=== PATIENT | male | born 1955 ===

== ENCOUNTER 2017-09-05 08:22 | Day surgery (SDC) | payer MEDICAID ==
[2016-09-23 17:57] VITALS: BMI 25.3
--- NOTE | 2017-09-05 11:29 | CP.SDSHP ---
Same Day Surgery H & P - History Proposed Procedure: US guided paracentesis Pre-Op Diagnosis: aSCITES - Allergies Allergies: Allergies No Known Allergies Allergy (Verified 02/21/14 08:32) - Physical Exam Vital Signs: Vital Signs 09/05/17 08:36 Temperature 97.6 F Pulse Rate 81 Respiratory 20 Rate Blood Pressure 157/75 H O2 Sat by Pulse 97 Oximetry Mental Status: Alert & Oriented x3 Neuro: WNL Heart: WNL Lungs: WNL - {Optional Preform as Required} Abdomen: Other (Distended, non tender) - Impression Impression: Pt with ascites refered for paracentesis. Informed consent obtained. Pt. Evaluated Today:Candidate for Anesthesia & Procedure: No Short Stay Discharge - Short Stay Discharge Admitting Diagnosis/Reason for Visit: OTHER ASCITES Disposition: HOME/ ROUTINE
--- NOTE | 2017-09-05 11:37 | PCM.SURG1 ---
Surgeon's Initial Post Op Note - Surgeon's Notes Surgeon: Hosea Bran MD Ammunition Assembly Ii Laborer: NONE Type of Anesthesia: Local Pre-Operative Diagnosis: Ascites Operative Findings: US showed moderate ascites Post-Operative Diagnosis: Ascites Operation Performed: US guided paracentesis Specimen/Specimens Removed: 3.8 liters Estimated Blood Loss: EBL {In ML}: 0 Blood Products Given: N/A Drains Used: No Drains Post-Op Condition: Fair Date of Surgery/Procedure: 09/05/17 Time of Surgery/Procedure: 11:30
[2017-09-05 12:39] VITALS: RESP 16; TEMP 97.8
[2017-09-05 12:42] VITALS: BP 144/68; PULSE 82; O2SAT 97
[2017-09-05 14:35] LABS: BODY FLUID TYPE PERITONEAL/ASCITES
[2017-09-05 15:24] LABS: BF GROSS APPEARANCE CLEAR (CLEAR); BODY FLUID MONO/MACROPHAGE 6 % (0-0)
== END 2017-09-05 12:15 | disposition home or self-care (01) ==
LOC: C.SPRAD 08:22
PROVIDERS: ATTEND Radiology Vascular & Interventional Radiology
DX: R18.8 Other ascites (principal)

== ENCOUNTER 2018-05-07 15:09 | Inpatient (IN) | payer MEDICAID ==
[2018-05-07 15:09] VITALS: BMI 25.3
--- NOTE | 2018-05-07 15:36 | C.PDOC ---
History Of Present Illness 62 y/o male pt with hx of ESRD c/o SOB. Pt reports he had SOB for x5 years but is worse today. Pt goes to dialysis on Friday and and was unable to receive dialysis due to SOB. Pt last dialysis was x2 days ago. Pt denies chest pain. Time Seen by Provider: 05/07/18 15:14 Chief Complaint (Nursing): Shortness Of Breath History Per: Patient History/Exam Limitations: no limitations Onset/Duration Of Symptoms: Hrs, Worse Since Current Symptoms Are (Timing): Still Present Past Medical History Reviewed: Historical Data, Nursing Documentation, Vital Signs Vital Signs: Last Vital Signs Temp 97.9 F 05/07/18 15:23 Pulse 76 05/07/18 15:23 Resp 20 05/07/18 15:23 BP 158/70 H 05/07/18 15:23 Pulse Ox 96 05/07/18 15:23 - Medical History PMH: Anemia, Gall Bladder Disease, HTN, Hypercholesterolemia Surgical History: Cholecystectomy - [facility] Procedures CATARAC PHACOEMULS/ASPIR (02/22/14) INSERT LENS AT CATAR EXT (02/22/14) Family History: States: No Known Family Hx - Social History Hx Alcohol Use: No Hx Substance Use: No Review Of Systems Except As Marked, All Systems Reviewed And Found Negative. Respiratory: Positive for: Shortness of Breath Physical Exam - Physical Exam Appears: Non-toxic, No Acute Distress Skin: Normal Color, Warm, Dry Head: Atraumatic, Normacephalic Oral Mucosa: Moist Throat: Normal Neck: Normal ROM, Supple Chest: Symmetrical Cardiovascular: Rhythm Regular Respiratory: Rales (b/l base), No Rhonchi, No Wheezing Gastrointestinal/Abdominal: Soft, No Tenderness Extremity: Pedal Edema (+2 b/l), Other (Thrill from AV fistula) Neurological/Psych: Oriented x3, Normal Speech ED Course And Treatment - Laboratory Results Result Diagrams: 05/07/18 15:36 05/07/18 15:36 ECG: Interpreted By Me, Viewed By Me ECG Rhythm: Sinus Rhythm ECG Interpretation: Normal Interpretation Of ECG: LAD; incomplete LBBB; LDH; no ST/T wave abnormalities Rate From EC O2 Sat by Pulse Oximetry: 96 (RA) Pulse Ox Interpretation: Normal - Other Rad chest X-Ray: Read By Radiologist Interpretation: Accession No. : [id number]. Patient Name / ID : DANTE HASSAN / [id number]. Exam Date : 05/07/2018 15:39:31 ( Approved ). Study Comment : Sex / Age : M / 62Y. Creator : Cami Shaikh MD. Dictator : Cami Shaikh MD. Tape Recorder Mechanic : Health And Safety Inspector : Cami Shaikh MD. Approver2 : Report Date : 05/07/2018 16:17:10. My Comment : . HISTORY: SOB. COMPARISON: None available. TECHNIQUE: Chest, one view. FINDINGS: Examination limited by habitus. The patient's chin obscures evaluation of the lung apices. LUNGS: Moderate interstitial edema/infection. Please note that chest x-ray has limited sensitivity for the detection of pulmon jenn masses. PLEURA: No significant pleural effusion identified. No definite pneumothorax . CARDIOVASCULAR: Median sternotomy wires. Cardiomegaly. OSSEOUS STRUCTURES: Degenerative changes. VISUALIZED UPPER ABDOMEN: Unremarkable. OTHER FINDINGS: None. IMPRESSION: Moderate interstitial christie ma/infection. Cardiomegal Medical Decision Making Medical Decision Making: Impression: ESRD Plans: -- EKG -- chem labs -- nephrology consult -- blood work -- CXR Discuss case with Dr. Neal, will arrange dialysis and admit under Dr. Jeong and Dr. Mena GI consult. Disposition Discussed With : Moreno Jeong Doctor Will See Patient In The: Hospital Counseled Patient/Family Regarding: Studies Performed, Diagnosis - Disposition Disposition: HOSPITALIZED Disposition Time: 16:11 Condition: FAIR - Clinical Impression Clinical Impression: ESRD (end stage renal disease), Fluid overload, Chronic congestive heart failure, Ascites - Scribe Statement The provider has reviewed the documentation as recorded by the Scribe [place] Do Provider Attestation: All medical record entries made by the Scribe were at my direction and personally dictated by me. I have reviewed the chart and agree that the record accurately reflects my personal performance of the history, physical exam, medical decision making, and the department course for this patient. I have also personally directed, reviewed, and agree with the discharge instructions and disposition.
[2018-05-07 15:39] LABS: BASO % 1.4 % (0.0-2.0); HEMOGLOBIN 12.7 g/dL (12.0-18.0); MEAN PLATELET VOLUME 8.8 fL (7.2-11.7)
[2018-05-07 15:52] LABS: BASO # 0.1 K/uL (0.0-0.2); EOS # 0.2 K/uL (0.0-0.7); EOS % 2.9 % (0.0-4.0); LYMPH # 0.8 K/uL (1.0-4.3); LYMPH % 14.2 % (20.0-40.0); MEAN CORPUSCULAR HEMOGLOBIN 34.1 pg (27.0-31.0); MEAN CORPUSCULAR HGB CONC 34.1 g/dL (33.0-37.0); MONO # 0.5 K/uL (0.0-0.8); MONO % 8.3 % (0.0-10.0); NEUT % 73.2 % (50.0-75.0); RBC 3.73 Mil/uL (4.40-5.90); WHITE BLOOD COUNT 5.5 K/uL (4.8-10.8)
[2018-05-07 15:57] LABS: ALBUMIN 3.9 g/dL (3.5-5.0)
[2018-05-07 16:11] LABS: TROPONIN I 0.022 ng/mL (0.00-0.120)
--- NOTE | 2018-05-07 16:20 | RAD ---
HISTORY: SOB COMPARISON: None available. TECHNIQUE: Chest, one view. FINDINGS: Examination limited by habitus. The patient's chin obscures evaluation of the lung apices. LUNGS: Moderate interstitial edema/infection. Please note that chest x-ray has limited sensitivity for the detection of pulmonary masses. PLEURA: No significant pleural effusion identified. No definite pneumothorax . CARDIOVASCULAR: Median sternotomy wires. Cardiomegaly. OSSEOUS STRUCTURES: Degenerative changes. VISUALIZED UPPER ABDOMEN: Unremarkable. OTHER FINDINGS: None. IMPRESSION: Moderate interstitial edema/infection. Cardiomegaly.
--- NOTE | 2018-05-07 18:30 | CP.PCM.CON ---
History of Present Illness - History of Present Illness History of Present Illness: 62 yo male ho ESRD HD, CAD, low EF %, now with SOB and ascites. Hashad ascites x 1 yr and has had paracentesis. Has LE edema Review of Systems - Constitutional Constitutional: Fatigue. absent: Fever - EENT Eyes: absent: Photophobia - Cardiovascular Cardiovascular: Dyspnea. absent: Chest Pain - Respiratory Respiratory: absent: Dyspnea, Hemoptysis - Gastrointestinal Gastrointestinal: absent: Change in Bowel Habits, Hematemesis, Hematochezia, Loose Stools, Melena, Vomiting - Genitourinary Genitourinary: absent: Hematuria, Urinary Frequency - Musculoskeletal Musculoskeletal: absent: Muscle Cramps - Integumentary Integumentary: absent: Rash - Neurological Neurological: absent: Convulsions Past Patient History - Past Medical History & Family History Past Medical History?: Yes - Past Social History Smoking Status: Former Smoker - CARDIAC Hx Hypercholesterolemia: Yes Hx Hypertension: Yes - PULMONARY Hx Respiratory Disorders: No - NEUROLOGICAL Hx Neurological Disorder: No - HEENT Hx HEENT Problems: Yes Hx Cataracts: Yes - RENAL Hx Chronic Kidney Disease: No - ENDOCRINE/METABOLIC Hx Endocrine Disorders: Yes Hx Diabetes Mellitus Type 2: Yes - HEMATOLOGICAL/ONCOLOGICAL Hx Anemia: Yes - INTEGUMENTARY Hx Dermatological Problems: No - MUSCULOSKELETAL/RHEUMATOLOGICAL Hx Musculoskeletal Disorders: No - GASTROINTESTINAL Hx Gall Bladder Disease: Yes - GENITOURINARY/GYNECOLOGICAL Hx Genitourinary Disorders: Yes Hx Hematuria: Yes Hx Prostate Problems: Yes - PSYCHIATRIC Hx Substance Use: No - SURGICAL HISTORY Hx Cholecystectomy: Yes - ANESTHESIA Hx Anesthesia: Yes Hx Anesthesia Reactions: No Hx Malignant Hyperthermia: No Meds Allergies/Adverse Reactions: Allergies Allergy/AdvReac Type Severity Reaction Status Date / Time No Known Allergies Allergy Verified 02/21/14 08:32 Physical Exam - Constitutional Appears: Non-toxic - Respiratory Exam Respiratory Exam: Clear to Auscultation Bilateral - Cardiovascular Exam Cardiovascular Exam: RRR - GI/Abdominal Exam GI & Abdominal Exam: Distended, Normal Bowel Sounds. absent: Guarding, Mass, Rebound - Extremities Exam Extremities exam: Positive for: pedal edema - Neurological Exam Neurological exam: Alert, Oriented x3 Results - Vital Signs Recent Vital Signs: Last Vital Signs Temp 97.3 F L 05/07/18 17:15 Pulse 71 05/07/18 17:37 Resp 18 05/07/18 17:37 BP 154/73 H 05/07/18 17:40 Pulse Ox 100 05/07/18 17:15 - Labs Result Diagrams: 05/07/18 15:36 05/07/18 15:36 Labs: Laboratory Results - last 24 hr 05/07/18 05/07/18 15:36 15:36 WBC 5.5 RBC 3.73 L Hgb 12.7 Hct 37.3 MCV 100.0 H D MCH 34.1 H MCHC 34.1 RDW 16.0 H Plt Count 224 MPV 8.8 Neut % (Auto) 73.2 Lymph % (Auto) 14.2 L [place] % (Auto) 8.3 Eos % (Auto) 2.9 Baso % (Auto) 1.4 Neut # (Auto) 4.0 Lymph # (Auto) 0.8 L [place] # (Auto) 0.5 Eos # (Auto) 0.2 Baso # (Auto) 0.1 Sodium 134 Potassium 4.4 Chloride 93 L Carbon Dioxide 30 Anion Gap 16 BUN 53 H Creatinine 4.5 H Est GFR ( Amer) 16 Est GFR (Non-Af Amer) 13 Random Glucose 353 H D Calcium 9.0 Magnesium 2.1 Total Bilirubin 1.2 AST 50 ALT 26 Alkaline Phosphatase 1029 H Troponin I 0.0220 NT-Pro-B Natriuret Pep 29001 H Total Protein 8.0 Albumin 3.9 Globulin 4.1 H Albumin/Globulin Ratio 1.0 Assessment & Plan (1) Ascites Assessment and Plan: Likely cardiogentic and renal related. Has had paracentesis in past. Best approach is with HD Status: Acute (2) Chronic congestive heart failure Assessment and Plan: Low EF% Status: Acute (3) ESRD (end stage renal disease) Status: Acute
[2018-05-07 21:39] VITALS: RESP 20
--- NOTE | 2018-05-07 22:53 | HP ---
HISTORY OF PRESENT ILLNESS: This is a 62-year-old male with a history of end-stage renal disease, on hemodialysis. Had hemodialysis day before yesterday. The patient was referred to emergency room by lace burn out tender because of shortness of breath and not feeling well. The patient has been having ascites and he had paracentesis before. The patient states that his abdominal distention and abdominal girth has been increasing lately. The patient is on hemodialysis and he is compliant to dialysis also. The patient had history of coronary artery disease, status post coronary artery bypass graft a few years ago. The patient admits that he has exertional shortness of breath, which is getting worse, and also he has symptoms of orthopnea. Other review of systems is positive for generalized weakness. 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 FAMILY HISTORY: Noncontributory. SOCIAL HISTORY: Ex-smoker. No EtOH or substance abuse. MEDICATIONS: As per MAR, reviewed and ordered. ALLERGIES: NO KNOWN ALLERGIES. PHYSICAL EXAMINATION: GENERAL: The patient is in mild respiratory distress during this examination. VITAL SIGNS: Blood pressure 152/65, temperature 97.3, respiratory rate 20, and pulse 75. HEENT: Pupils equal and reactive to light. Normal-appearing mucosa of the conjunctivae, oropharynx and nasal membrane mucosa. NECK: Supple. No JVD. No carotid bruit. No lymph node. No thyromegaly. CHEST: Lungs show bilateral symmetrical expansion. Good air exchange. No rales, no rhonchi. CARDIOVASCULAR SYSTEM: PMI not localized. S1, S2. No additional sounds. ABDOMEN: Distant bowel sounds. There is increased abdominal girth with shifting dullness. EXTREMITIES: +1 edema of both lower extremities. FOOTWEAR STITCHER: Alert, awake, oriented x2. No neurological deficit could be appreciated. IMAGING DATA: On the chest x-ray, the patient showed moderate interstitial edema and cardiomegaly. ASSESSMENT: 1. Possible congestive heart failure. 2. Ascites. 3. Type 2 diabetes mellitus. 4. Coronary artery disease. 5. Hypertension. PLAN: We will do abdominal ultrasound and echocardiogram. Cardiology and GI consult. Resume the patient's home medications with Accu-Cheks and insulin coverage. Consider paracentesis. Nephrology consult. Continue hemodialysis. Delfina MD Jean-Paul
[2018-05-07] MEDS ORDERED: Glucagon Recombinant 1 mg Inj IM PRN (23:12)
[2018-05-07] MEDS ORDERED: Dextrose 50% SYRINGE Inj (50 ml) IV PRN (23:12)
[2018-05-08] MEDS: (Novolog) Insulin Aspart, Recombinant 100 u/ml 10 ml vial SC SCH ×2 (08:08→12:45)
--- NOTE | 2018-05-08 08:17 | CP.PCM.PN ---
Subjective - Date & Time of Evaluation Date of Evaluation: 05/08/18 Time of Evaluation: 08:14 - Subjective Subjective: f/u ascites. Reports abdom distention. Less SOB. Denies RB, melena, fever, chills, SZ, ARIAS, cough, hemoptysis, hematuria Objective - Vital Signs/Intake and Output Vital Signs (last 24 hours): Temp Pulse Resp BP Pulse Ox 98 F 73 20 156/78 H 95 05/07/18 23:45 05/08/18 06:08 05/07/18 23:45 05/08/18 06:08 05/07/18 23:45 Intake and Output: 05/08/18 05/08/18 06:59 18:59 Intake Total 50 Balance 50 - Medications Medications: Current Medications Allopurinol (Zyloprim) 100 mg PO DAILY [facility] Clopidogrel Bisulfate (Plavix) 75 mg PO DAILY [facility] Dextrose (Dextrose 50% Inj) 0 ml IV STAT PRN; Protocol PRN Reason: Hypoglycemia Protocol Dextrose (Glutose 15) 0 gm PO ONCE PRN; Protocol PRN Reason: Hypoglycemia Protocol Enalapril Maleate (Vasotec) 10 mg PO BID [facility] Ergocalciferol (Drisdol 50,000 Intl Units Cap) 1 cap PO Q7D [facility] Famotidine (Pepcid) 20 mg PO BID [facility] Glucagon (Glucagen Diagnostic Kit) 0 mg IM STAT PRN; Protocol PRN Reason: Hypoglycemia Protocol Dextrose (Dextrose 5% In Water 1000 Ml) 1,000 mls @ 0 mls/hr IV .Q0M PRN; Protocol PRN Reason: Hypoglycemia Protocol Insulin Aspart (Novolog) 0 unit SC ACHS [facility]; Protocol Last Admin: 05/08/18 08:08 Dose: 3 units Isosorbide Dinitrate (Isordil) 40 mg PO Q8 [facility] Last Admin: 05/08/18 06:08 Dose: 40 mg Magnesium Oxide (Mag-Ox) 400 mg PO BID [facility] Rosuvastatin Calcium (Crestor) 5 mg PO HS [facility] Sevelamer Carbonate (Renvela) 1,600 mg PO TID [facility] Torsemide (Demadex) 100 mg PO DAILY [facility] Vitamin B Complex/Vit C/Folic Acid (Nephro-Karolyn) 1 tab PO DAILY [facility] - Labs Labs: 05/07/18 15:36 05/07/18 15:36 - Constitutional Appears: Non-toxic - Respiratory Exam Respiratory Exam: Rales - Cardiovascular Exam Cardiovascular Exam: RRR - GI/Abdominal Exam GI & Abdominal Exam: Distended, Normal Bowel Sounds. absent: Tenderness - Extremities Exam Extremities Exam: Pedal Edema - Neurological Exam Neurological Exam: Alert, Oriented x3 Assessment and Plan (1) Ascites Assessment & Plan: From CRF and cardiac. Getting an extra HD today. If that does not help the ascites, then consider paracentesis, but will likley re-accumulate quickly. Status: Acute (2) Chronic congestive heart failure Status: Acute (3) ESRD (end stage renal disease) Status: Acute
[2018-05-08] MEDS ORDERED: Ergocalciferol 50,000 Intl Units Cap PO SCH (10:00)
[2018-05-08] MEDS ORDERED: Multivitamin Vitamin B Complex (Nephro-Vite) Tab PO SCH (10:00)
[2018-05-08] MEDS ORDERED: Magnesium Oxide 400 mg Tab UD PO SCH (10:00)
[2018-05-08 11:56] LABS: INR 1.2; PROTHROMBIN TIME 12.8 SECONDS (9.7-12.2)
--- NOTE | 2018-05-08 12:05 | CARD ---
APPROVED REPORT Date of service: 05/07/2018 EKG Measurement Heart [id number] <Conclusion> Normal sinus rhythm Possible Left atrial enlargement Left axis deviation Left ventricular hypertrophy with QRS widening Possible Lateral infarct, age undetermined Abnormal ECG
[2018-05-08] MEDS ORDERED: Lidocaine 2% MPF (5 ml) Inj ONE (14:01)
--- NOTE | 2018-05-08 14:21 | PCM.SURG1 ---
Surgeon's Initial Post Op Note - Surgeon's Notes Surgeon: Hosea Denny MD Analytical Research Chemist: NONE Type of Anesthesia: Local Pre-Operative Diagnosis: Ascites Operative Findings: US showed a moderate amount of ascites Post-Operative Diagnosis: Ascites Operation Performed: US guided paracentesis Specimen/Specimens Removed: 3 liters of heraclio colored fluid Estimated Blood Loss: EBL {In ML}: 0 Blood Products Given: N/A Drains Used: No Drains Post-Op Condition: Fair Date of Surgery/Procedure: 05/08/18 Time of Surgery/Procedure: 14:20
[2018-05-08 16:07] VITALS: BP 157/66; PULSE 75; TEMP 97.7; O2SAT 157
[2018-05-08 16:20] LABS: BF GROSS APPEARANCE BLOODY (CLEAR); BODY FLUID TYPE PERITONEAL
[2018-05-08 16:33] LABS: BODY FLUID MONO/MACROPHAGE 18 % (0-0)
--- NOTE | 2018-05-08 16:45 | US ---
Date of Procedure: 05/08/2018 PROCEDURE: Ultrasound-guided paracentesis, CPT 57039 Medications: 7 cc 1% Lidocaine HISTORY: Ascites, abdominal pain, cirrhosis TECHNIQUE: Following informed consent , the patient was placed supine on the stretcher and the site was marked. A limited abdominal ultrasound was performed that showed a large amount of intra-abdominal fluid. Procedural time out was called and the Pt's abdomen was marked and prepped and draped in the usual sterile fashion. Ultrasound-guided large volume paracentesis performed. A total of 3 Liters of straw colored fluid was removed without complication. IMPRESSION: Ultrasound-guided large volume paracentesis.
--- NOTE | 2018-05-08 17:46 | CP.PCM.CON ---
History of Present Illness - History of Present Illness History of Present Illness: REASONS OF CONSULT : ESRD ON HD TTS SEVERE SOB .. ANASARCA .. SEVERE ASCITIS PT WAS SEEN AT THE HD CWNTER WAS C/O SEVERE SOB AND TENSE ASCITIS AND ANASARCA HE WANTED TO GO TO THE HOSPITAL FOR PARATSENTHESIS .. History Of Present Illness 62 y/o male pt with hx of ESRD c/o SOB. Pt reports he had SOB for x5 years but is worse today. Pt goes to dialysis on Friday and and was unable to receive dialysis due to SOB. Pt last dialysis was x2 days ago. Pt denies chest pain. Time Seen by Provider: 05/07/18 15:14 Chief Complaint (Nursing): Shortness Of Breath History Per: Patient History/Exam Limitations: no limitations Onset/Duration Of Symptoms: Hrs, Worse Since Current Symptoms Are (Timing): Still Present Past Medical History Reviewed: Historical Data, Nursing Documentation, Vital Signs Vital Signs: Last Vital Signs Temp 97.9 F 05/07/18 15:23 Pulse 76 05/07/18 15:23 Resp 20 05/07/18 15:23 BP 158/70 H 05/07/18 15:23 Pulse Ox 96 05/07/18 15:23 - Medical History PMH: Anemia, Gall Bladder Disease, HTN, Hypercholesterolemia Surgical History: Cholecystectomy - [facility] Procedures Past Patient History - Past Medical History & Family History Past Medical History?: Yes - Past Social History Smoking Status: Heavy Smoker > 10 Cigarettes Daily - CARDIAC Hx Hypercholesterolemia: Yes Hx Hypertension: Yes - PULMONARY Hx Respiratory Disorders: No - NEUROLOGICAL Hx Neurological Disorder: No - HEENT Hx HEENT Problems: Yes Hx Cataracts: Yes - RENAL Hx Chronic Kidney Disease: No Type of Dialysis Access: SCOTT AV shunt Date of Last Dialysis Treatment: 05/07/18 - ENDOCRINE/METABOLIC Hx Endocrine Disorders: Yes Hx Diabetes Mellitus Type 2: Yes - HEMATOLOGICAL/ONCOLOGICAL Hx Anemia: Yes Hx Blood Transfusions: Yes - INTEGUMENTARY Hx Dermatological Problems: No - MUSCULOSKELETAL/RHEUMATOLOGICAL Hx Musculoskeletal Disorders: No - GASTROINTESTINAL Hx Gall Bladder Disease: Yes - GENITOURINARY/GYNECOLOGICAL Hx Genitourinary Disorders: Yes Hx Hematuria: Yes Hx Prostate Problems: Yes - PSYCHIATRIC Hx Substance Use: No - SURGICAL HISTORY Hx Cholecystectomy: Yes Hx Open Heart Surgery: Yes - ANESTHESIA Hx Anesthesia: Yes Hx Anesthesia Reactions: No Hx Malignant Hyperthermia: No Meds Allergies/Adverse Reactions: Allergies Allergy/AdvReac Type Severity Reaction Status Date / Time No Known Allergies Allergy Verified 02/21/14 08:32 Results - Vital Signs Recent Vital Signs: Last Vital Signs Temp 97.7 F 05/08/18 14:35 Pulse 75 05/08/18 14:35 Resp 20 05/08/18 07:00 BP 157/66 H 05/08/18 14:35 Pulse Ox 157 H 05/08/18 14:35 - Labs Result Diagrams: 05/07/18 15:36 05/07/18 15:36 Labs: Laboratory Results - last 24 hr 05/07/18 05/08/18 05/08/18 21:48 06:52 11:08 PT 12.8 H INR 1.2 APTT 43 H POC Glucose (mg/dL) 274 H 249 H Fluid Source Fluid Appearance Fluid WBC Fluid RBC Fluid Neutrophils Fluid Lymphocytes Fld Monocyte/Macrophag Fluid Comment 05/08/18 05/08/18 05/08/18 11:27 16:20 16:21 PT INR APTT POC Glucose (mg/dL) 241 H 296 H Fluid Source Peritoneal Fluid Appearance Bloody Fluid WBC 193.0 Fluid RBC 49550.0 H Fluid Neutrophils 39.0 H Fluid Lymphocytes 40.0 H Fld Monocyte/Macrophag 18 H Fluid Comment Assessment & Plan - Assessment and Plan (Free Text) Plan: ESRD ON HD .. GIVE HD STAT GI FOE PARACENTHESIS .. PT IS KNOWN BY DR JAMIA VALDES D/W DR CRUZ NEEDS DIETARY CONSULT AND COUNSELING FOE RENAL DIET .. 1L FR WILL KEEP CLOSE EYE ON PT - Date & Time Date: 05/08/18 Time: 15:00
--- NOTE | 2018-05-09 15:22 | CARD ---
APPROVED REPORT Date of service: 05/08/2018 EXAM: Two-dimensional and M-mode echocardiogram with Doppler and color Doppler. INDICATION Dyspnea CAD Congestive Heart Failure Surgery/Intervention CABD DIMENSIONS IVSd1.4 (0.7-1.1cm)LVDd5.5 (3.9-5.9cm) PWd1.3 (0.7-1.1cm)LA Svjbdh36 (18-58mL) LVDs4.8 (2.5-4.0cm)FS (%) 12.5 % LVEF (%)26.6 (>50%)LVEF (Jerome's)24.41 % M-Mode DIMENSIONS RVDd3.25 (2.1-3.2cm)Left Atrium (MM)4.84 (2.5-4.0cm) IVSd1.07 (0.7-1.1cm)Aortic Root3.44 (2.2-3.7cm) LVDd5.97 (4.0-5.6cm)Aortic Cusp Exc.1.88 (1.5-2.0cm) PWd1.22 (0.7-1.1cm)FS (%) 20 % LVDs4.79 (2.0-3.8cm)TAPSE6.25 cm LVEF (%)28 (>50%) Mitral Valve MV E [place]068.4cm/sMV A Dnvkudnr70.2cm/sE/A ratio1.2 GOSY604.16 cm/s TDI Lateral E' Peak V7.45cm/sMedial E' Peak V2.48cm/sE/Lateral E'14.7 E/Medial E'44.1 Tricuspid Valve TR Peak Bqblqpms432ta/sTR Peak Gr.12jxRmLLIY60ubKg LEFT VENTRICLE The Left Ventricle is moderately dilated. There is moderate concentric left ventricular hypertrophy. The Ejection Fraction is 25-30%. There is a flattened septum consistent with right ventricle pressure overload. Transmitral Doppler flow pattern is Grade II-pseudonormal filling dynamics. RIGHT VENTRICLE The right ventricle is mildly dilated. rv Systolic function is moderately reduced. ATRIA The left atrium is moderately dilated. The right atrium is mildly dilated. The interatrial septum is intact with no evidence for an atrial septal defect. AORTIC VALVE The aortic valve is normal in structure. No aortic regurgitation is present. MITRAL VALVE The mitral valve is normal in structure. Mitral regurgitation is moderate to severe. TRICUSPID VALVE The tricuspid valve is normal in structure. There is moderate to severe tricuspid regurgitation. Right ventricular systolic pressure is estimated at 40 mmHg. There is mild pulmonary hypertension. PULMONIC VALVE The pulmonary valve is normal in structure. There is mild pulmonic valvular regurgitation. GREAT VESSELS The aortic root is normal in size. Dilated IVC with poor inspiration collapse is consistent with elevated right atrial pressure. PERICARDIAL EFFUSION There is no pericardial effusion. <Conclusion> The Left Ventricle is moderately dilated. There is moderate concentric left ventricular hypertrophy. The Ejection Fraction is 25-30%. There is a flattened septum consistent with right ventricle pressure overload. Transmitral Doppler flow pattern is Grade II-pseudonormal filling dynamics. The right ventricle is mildly dilated. rv Systolic function is moderately reduced. The left atrium is moderately dilated. The right atrium is mildly dilated. Mitral regurgitation is moderate to severe. There is moderate to severe tricuspid regurgitation. Right ventricular systolic pressure is estimated at 40 mmHg. There is mild pulmonary hypertension. Dilated IVC with poor inspiration collapse is consistent with elevated right atrial pressure. There is no pericardial effusion.
--- NOTE | 2018-05-10 01:48 | DS ---
REASON FOR ADMISSION: This is a 62-year-old male with history of multiple medical problems, who was admitted for shortness of breath secondary to massive ascites. COURSE OF HOSPITALIZATION: The patient was admitted to medical floor, and he was started on hemodialysis as per car sander. The patient also had a GI consult done by Dr. May, and the patient underwent paracentesis by IR. Workup was sent as per political worker. The patient signed against medical advice before getting any results of the ascitic fluid, neither proper management of the patient's shortness of breath and congestion. The patient was alert, awake, oriented x3. FINAL DIAGNOSES: Massive ascites; possible liver cirrhosis; congestive heart failure, systolic and diastolic; coronary artery disease, status post coronary artery bypass graft; and end-stage renal disease, on hemodialysis. Moreno Jeong MD
== END 2018-05-08 17:14 | disposition left against medical advice (07) | DRG 202 ==
LOC: C.ER 15:09 → C.9E 16:09 → C.6T 17:36
PROVIDERS: ADMIT Internal Medicine; ATTEND Internal Medicine
PROC: 5A1D70Z Performance of Urinary Filtration, Intermittent, Less than 6 Hours Per Day (ICD-10-PCS; 2018-05-07)
PROC: 0W9G3ZZ Drainage of Peritoneal Cavity, Percutaneous Approach (ICD-10-PCS; principal; 2018-05-08)
PROC: BW40ZZZ Ultrasonography of Abdomen (ICD-10-PCS; 2018-05-08)
DX: K74.60 Unspecified cirrhosis of liver (principal); R18.8 Other ascites; N18.6 End stage renal disease; I13.2 Hypertensive heart and chronic kidney disease with heart failure and with stage 5 chronic kidney disease, or end stage renal disease; E11.22 Type 2 diabetes mellitus with diabetic chronic kidney disease; I50.9 Heart failure, unspecified; I25.10 Atherosclerotic heart disease of native coronary artery without angina pectoris; E78.00 Pure hypercholesterolemia, unspecified; Z87.891 Personal history of nicotine dependence; Z90.49 Acquired absence of other specified parts of digestive tract; Z95.1 Presence of aortocoronary bypass graft; Z99.2 Dependence on renal dialysis